=== PATIENT | male | born 1940 | race Caucasian/White ===

== ENCOUNTER → 2019-05-19 14:03 | Outpatient (CLI) | payer MEDICARE, SELFPAY ==
--- NOTE | 2019-05-19 14:14 | CT_ITS ---
STUDY: CT CHEST WITHOUT CONTRAST- LOW DOSE SCREENING PROTOCOL REASON FOR EXAM: Male, 78 years old. Current smoker. 110 pack per year history. No current symptoms of lung cancer or pulmonary infection. Shared decision-making with referring PCP documented in patient's record. RADIATION DOSAGE (If Supplied By Facility): CTDIvol = ( 2.55 ) mGy, DLP = ( 77.54 ) mGycm TECHNIQUE: Low dose screening CT examination performed from the base of the neck to the upper abdomen. Sagittal and coronal reformatted images performed. Sagittal and coronal MIP images provided. The measurements provided are average, rounded measurements per ACR guidelines. COMPARISON: None. FINDINGS: Mild emphysematous changes. No noncalcified nodule or mass. There is no demonstrated pleural abnormality. Normal heart and pericardium. There are calcifications of the coronary arteries. Normal mediastinum. Normal hilar regions. Normal unenhanced pulmonary arteries. There is atherosclerotic calcification of the aortic arch with tortuosity and elongation of the aortic arch and descending thoracic aorta. Normal osseous structures. There is no demonstrated abnormality of the visualized upper abdomen. CT/Low Dose CT Lung Screening IMPRESSION: 1. No significant indeterminate incidental findings requiring additional imaging. 2. Incidental findings include mild emphysema. ASSESSMENT CATEGORY: LungRADS 1 - Negative. Continue annual screening with LDCT in 12 months, per established ACR guidelines. Electronically Signed: Julius Romero MD at 17:16 EDT Tel , Service support ,
== END ==
DX: J44.9 Chronic obstructive pulmonary disease, unspecified (principal); F17.210 Nicotine dependence, cigarettes, uncomplicated
CPT/HCPCS: G0297

== ENCOUNTER → 2019-12-06 14:32 | Outpatient (CLI) | payer MEDICARE, SELFPAY ==
--- NOTE | 2019-12-06 14:39 | CT_ITS ---
STUDY: LOW DOSE CT LUNG CANCER SCREENING REASON FOR EXAM: Male, 79 years old. TOBACCO ABUSE -- +SMOKER X60 YEARS 2PPD UNFILTERED -- SURG-GB,ANGIOPLASTY -- HTN RADIATION DOSAGE (If Supplied By Facility): CTDIvol = ( 3.02 ) mGy, DLP = ( 111.36 ) mGycm TECHNIQUE: No contrast was administered. Low dose technique was utilized (average mAS-38 and kVp 120). 1.25 mm axial source images with a slice interval of 1.25-mm were reconstructed in lung windows. 2.5 mm axial source images with a slice interval of 2.5-mm were reconstructed in lung windows. 5.0 mm axial source images with a slice interval of 5.0-mm were reconstructed in soft tissue windows. Nodule measured using lung windows on PACS and/or independent workstation with automated measurement of minimum and maximum diameter. Nodule measurement reported as average diameter rounded to the nearest whole number. Growth is defined as an increase ins size of greater than 1.5 mm. COMPARISON: 05/19/2019 and 11/19/2014 CT chest. Findings: Heart and great vessels: Heart size normal. No aneurysm of the thoracic aorta. Dense calcific atherosclerosis of the coronary arteries. Lungs, pleura: No pneumonia, edema, or acute abnormality in the lungs. No pleural effusion. No pneumothorax. 2 mm nodule superior segment right lower lobe series 2 image 99 unchanged compared to 2015. Unchanged compared to 2015 slightly nodular scarring more posteriorly in the superior segment of the right lower lobe series 2 image 113. 5 mm nodule superior segment lower lobe left lung unchanged compared to 2015 series 2 image 88. Scattered 2 mm subpleural nodules lateral aspect left lower lobe unchanged compared to 2015. Chronic slightly nodular scarring in the lingula and right middle lobe unchanged. Mild chronic bronchial wall thickening. Mild emphysema. Mediastinum: No adenopathy or mass or hematoma. Incidental calcified left hilar lymph nodes again demonstrated. Osseous:No fracture or acute osseous abnormality. Chest wall: No concerning findings. Upper abdomen: No acute findings. Status post cholecystectomy. CT/Low Dose CT Lung Screening IMPRESSION: No concerning interval change. Lung RADS category 2. Continued annual screening suggested. Dense atherosclerosis of the coronary arteries. Mild chronic bronchial wall thickening and mild emphysema. IMPORTANT NOTES FOR USE: ACR Lung-RADS Version 1.0 Assessment Categories Release Date: February 19, 2014 Category: Coded 0-4 bases on nodule(s) with highest degree of suspicion. Negative screen is defined as categories 1 and 2; a positive screen is defined as categories 3 and 4. Category 3 and 4A nodules that are unchanged on interval CT should be coded as category 2, and individuals returned to screening in 12 months. Category 4X: Category 3 or 4 nodules with additional imaging findings that increase the suspicion of lung cancer, such as spiculation, GGN that doubles in size in 1 year, enlarged lymph notes, etc. Category Modifiers: S (significant finding unrelated to lung cancer) and C (prior history of treated lung cancer) may be added to the 0-4 Lung-RADS Electronically Signed: French Rosales, at 23:32 EST Tel , Service support ,
== END ==
DX: Z87.891 Personal history of nicotine dependence (principal); Z12.2 Encounter for screening for malignant neoplasm of respiratory organs
CPT/HCPCS: G0297

== ENCOUNTER → 2020-07-31 | Outpatient (CLI) | payer MEDICARE, SELFPAY ==
[2020-07-18 10:09] VITALS: BMI 26.9
--- NOTE | 2020-07-31 13:38 | ART_ITS ---
Reason For Study: Absent DP and PRINTER TECHNICIAN pulses bilaterally Procedure A bilateral lower extremity continuous wave Doppler with analog waveform analysis and ankle brachial indexes. Left Segmental Pressures Left brachial= 128mmHg. Left posterior tibial artery = 131mmHg. Left dorsalis pedis artery = 130mmHg. Left digit = 110 mmHg. The left dorsalis pedis waveforms are triphasic. The left posterior tibial artery waveforms are triphasic. Right Segmental Pressures Right brachial= 134mmHg. Right posterior tibial artery = 74mmHg. Right dorsalis pedis artery = 77mmHg. Right digit = 49 mmHg. The right dorsalis pedis waveforms are monophasic. The right posterior tibial artery waveforms are monophasic. Indices The right ankle brachial index by the dorsalis pedis is 0.57. The right ankle brachial index by the posterior tibial artery is 0.55. The right digital-brachial index is 0.37. The left ankle brachial index by the dorsalis pedis is 0.97. The left ankle brachial index by the posterior tibial artery is 0.98. The left digital-brachial index is 0.82. 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 Doppler waveforms for the posterior tibial and dorsalis pedis are only monophasic suggesting a possible more severe level of disease Abnormal right digital brachial indices Minimal left lower extremity arterial occlusive disease based upon ankle-brachial indices and triphasic Doppler waveforms Normal left digital brachial indices Ordering Physician: Milady Adan Performed By: Shona De Leon RVT and Student
== END | disposition home or self-care (01) ==
LOC: CVS 13:38
PROVIDERS: Referring Provider Nurse Practitioner Family; Visit Provider Nurse Practitioner Family
DX: R09.89 Other specified symptoms and signs involving the circulatory and respiratory systems (principal)
CPT/HCPCS: 93922

== ENCOUNTER 2020-08-21 14:30 | Outpatient (RCR) | payer MEDICARE, SELFPAY ==
[2020-07-18 10:09] VITALS: BMI 26.9
--- NOTE | 2020-07-25 16:13 | HP.PTEVAL_ITS ---
Patient's Visit Information STEPHAN BENAVIDEZ is a 79 year old M referred to Physical Therapy by LORA Avalos with a diagnosis of Generalized Weakness. Date of Evaluation: 07/25/20 Physical Therapist: Viviana Flores DPT - Visit Plan Frequency: 2x /Week Duration: 4 Weeks Plan: Focus on LE and core strength/stabilization - Subjective MD ordered him to come here- he thinks he has the strength of a 6 year old girl- this is not new- he has a blood test 2x a year- when he got results nothing jumped out at him. He has just started with a neurologist. He sent him here for therapy and tests. He has weakness and balance issues. He has arthritis pain- all over pain. Pain is there all the time. Dull and achy pains. The pain does not change a whole lot. 02/01. Notices the weakness when he is lifting something- generalized weakness-balance is worse when he gets up- recent falls coming up concrete stairs a couple of months ago. He is not very active at this point. He keeps up with his schedule and fixes himself some meals. He is fully I with all of his ADL's and lives alone. Drives himself. Does not use a cane or walker. Lives in an apt with no stairs. No NT in the LE or UE. PMHx/Meds: see list - Objective Posture: FH, RS, increased kyphosis- can correct with verbal and tactile cues but does not maintain. Gait: short stride length and decreased claribel. Stairs: asc/desc 8 recip with 2 HR- poor control with descent- asc uses UE A for propulstion. HR/TR: able with UE A. Balance: see FGA below. ROM: WFL in LE and core. Strength:Core:fair minus, Scap: fair minus. Shoulder: 4/5 t hroughout Elbow: 4+/5, Wrist/Alodize Machine Helper: WNL, Hip: 4/5 throughout, Knee: 5/5, Ankle: 5/5. Sit to installation helper 30 sec: 11 with no UE A. Flex: HS: severe Gastroc: severe - Balance Scores Functional Gait Assessment Score: 20 % Disability: 33.3400 - Goals Goal 1:: Patient will be I with HEP and progression Goal Time Frame: 4-6 Weeks Goal 2:: Patient will asc/desc 8 stairs recip with 1 HR and good control Goal Time Frame: 4-6 Weeks Goal 3:: Patient will demo 4+/5 strength throughout LE Goal Time Frame: 4-6 Weeks Goal 4:: Patient will maintain proper posture t/o tx session to demo increased core s/s Goal Time Frame: 4-6 Weeks - Rehabilitation Potential Physical Therapy Diagnosis: Patient presents with hypomobility- he has decreased strength and muscular endurance leading to poor balance, gait and decreased ability to perform ADL's. Rehabilitation Potential: Fair - Anticipated Interventions Patient/Client Instruction: Educate patient on: Benefits of Fitness Program Therapeutic Exercise to Include: Strength training, Endurance training, Body mechanics, Postural training, Flexibilty training, Gait and locomotor training, Neuromotor development, Passive ROM, Active ROM, Dynamic Lumbar Stabilization, Scapular Strength/Stabilization For the Purpose of:: To improve muscle performance and motor function TENS: Yes Cryotherapy (ice pack, ice massage): Yes Thermo therapy (hot pack): Yes Thank you for the opportunity to evaluate your patient. For Medicare and Medicare HMO plans, please review the plan of care and approve it. It will need to be FAXED BACK to us at [phone] for Medicare purposes. For Medicare only, by signing this I certify the plan of care. Please let me know if there are questions or concerns regarding this plan of care. Physician Signature: Date:
--- NOTE | 2020-08-21 15:04 | HP.PTDCSUM ---
It has been my pleasure to treat STEPHAN BENAVIDEZ referred by LORA Avalos, with the diagnosis of Generalized Weakness for a total of 8 visit(s). Discharge Date: Please see the following information for a summary of their discharge status. Subjective: Patient reports that he does not feel that getting stronger will happen in PT. He is frustrated and dissapointed that the doctors have not gotten his blood work figured out even though its normal. He feels that there is osmething medically wrong and he needs more than PT. He reports that he is not active at home and sits most of the day. Every other day he walks to the mailbox. % Improvement: 25 Objective/Function: Posture: FH, RS, increased kyphosis- can correct with verbal and tactile cues but does not maintain. Gait: short stride length and decreased claribel. Stairs: asc/desc 8 recip with 1 HR HR/TR: able with UE A. ROM: WFL in LE and core. Strength:Core:fair minus, Scap: fair minus. Shoulder: 4/5 throughout Elbow: 4+/5, Wrist/Applications Engineer Manufacturing: WNL, Hip: 4/5 throughout, Knee: 5/5, Ankle: 5/5. Sit to residential door unit installer 30 sec: 12 with no UE A. Flex: HS: severe Gastroc: severe Goal 1:: Patient will be I with HEP and progression Goal Progress: Progressing Goal 2:: Patient will asc/desc 8 stairs recip with 1 HR and good control Goal Progress: Progressing Goal 3:: Patient will demo 4+/5 strength throughout LE Goal Progress: Progressing Goal 4:: Patient will maintain proper posture t/o tx session to demo increased core s/s Goal Progress: Progressing Plan: Discharge to I home exercise program and encouraged him to follow up with his MD as he feels necessary. If there are questions or concerns regarding this patient's physical therapy, please feel free to call me at [phone]. Thank you for the referral of this patient. Sincerely, Viviana Flores DPT
== END 2020-08-21 19:00 | disposition home or self-care (01) ==
LOC: PT 14:30
PROVIDERS: Referring Provider Nurse Practitioner Family; Visit Provider Nurse Practitioner Family
DX: R53.1 Weakness (principal); G62.9 Polyneuropathy, unspecified
CPT/HCPCS: 97110; 97162; 97164

== ENCOUNTER → 2020-10-14 13:08 | Outpatient (CLI) | payer MEDICARE, SELFPAY ==
[2020-07-18 10:09] VITALS: BMI 26.9
--- NOTE | 2020-10-14 14:46 | NEURO_ITS ---
NCS and/or EMG Patient Report Ordering Doctor: Andrey Mendosa DATE OF SERVICE: 10/14/20 Indication: Generalized weakness and gait imbalance over the last year. He walks unassisted with no falls. No associated pain or sensory disturbance. Of note, the patient reports that he is taking an anticoagulant, but he cannot recall the name. This medication is not in our system (he reports that it is prescribed by his master chef in [place], [place]). Findings: Nerve conduction studies were performed in the right and left lower extremity. The right peroneal motor study recording the extensor digitorum brevis showed a normal amplitude, normal distal latency and normal conduction velocity. No conduction block or focal slowing was present across the fibular neck. The right tibial motor study recording the abductor hallucis brevis showed a normal amplitude, normal distal latency and normal conduction velocity. Right sural sensory response was absent. Right superficial peroneal sensory response showed a normal amplitude and borderline conduction velocity. The left peroneal motor study recording the extensor digitorum brevis showed a normal amplitude, normal distal latency and normal conduction velocity. No conduction block or focal slowing was present across the fibular neck. The left tibial motor study recording the abductor hallucis brevis showed a normal amplitude, normal distal latency and normal conduction velocity. Left sural sensory response showed a normal amplitude and borderline conduction velocity. Left superficial peroneal sensory response showed a normal amplitude and borderline conduction velocity. Limited needle EMG of the right lower extremity muscles was performed. The iliacus and lumbar paraspinal muscles could not be sampled due to the patient's current treatment with anticoagulant medication. No denervation was present in any muscle. All motor unit morphology, activation and recruitment patterns were normal. Impression: This is an essentially normal, but limited study. There is no definitive electrophysiologic evidence of peripheral polyneuropathy in either lower extremity. In addition, limited needle EMG (see above) failed to reveal evidence of a myopathy in the right lower extremity. This absent right sural response is likely technical as it does not correlate with any clinical symptomatology. The isolated motor unit changes in the right vastus lateralis are of unclear significance. They are suggestive of a remote neurogenic injury- though this cannot be localized further with the current study. A more complete examination off anticoagulation could be considered. Sumanth Atkinson D.O.
== END ==
PROVIDERS: Referring Provider Psychiatry & Neurology Neurology; Visit Provider Psychiatry & Neurology Neurology
DX: G62.9 Polyneuropathy, unspecified (principal); G72.9 Myopathy, unspecified
CPT/HCPCS: 95886; 95910

== ENCOUNTER → 2020-11-22 14:34 | Outpatient (CLI) | payer MEDICARE, SELFPAY ==
[2020-11-22 13:54] VITALS: BMI 25.3
[2020-11-22 15:04] LABS: Hematocrit 43.5 % (40-54); Hemoglobin 14.5 g/dL (13.0-16.5); Mean Corp Hgb Conc 33.3 g/dL (32-36); Mean Corpuscular Hgb 29.1 pg (27.0-32.0); Mean Corpuscular Volume 87.2 fL (80-94); Mean Platelet Vol. 11.1 fl (6.2-12.0); Platelet Count 181 K/mm3 (150-450); RBC Distribution Width CV 13.8 % (11.6-14.6); RBC Distribution Width SD 43.7 fl (35.1-43.9); Red Blood Count 4.99 M/mm3 (4.6-6.2); White Blood Count 6.2 K/mm3 (4.4-11.0)
[2020-11-22 15:31] LABS: ALB/GLOB Ratio 1.2 RATIO (0.9-2.4); AST(SGOT) 10 U/L (15-37); Alanine Aminotransfer ALT/SGPT 17 U/L (16-61); Albumin, Serum 3.5 g/dL (3.2-5.0); Alkaline Phosphatase 81 U/L (45-117); Anion Gap 4 (5-15); BUN 12 mg/dL (7-18); BUN/Creat Ratio 12.4 RATIO (10-20); Calcium,Total 8.5 mg/dL (8.5-10.1); Chloride 106 mmol/L (98-107); Creatinine, Serum 0.96 mg/dL (0.70-1.30); EST Glomerular Filtration Rate 80 mL/min (>60); Est Glom Filt Rate - Afr Amer 97 mL/min (>60); Globulin 2.8 g/dL (2.2-4.2); Glucose 133 mg/dL (74-106); Protein, Total 6.3 g/dL (6.4-8.2); Sodium Level 139 mmol/L (136-145)
[2020-11-22 15:34] LABS: CPK Total, Creatine Kinase 40 U/L (39-308)
[2020-11-25 02:04] LABS: ANTINUCLEAR ANTIBODIES DIRECT Negative (Negative)
== END ==
PROVIDERS: Psychiatry & Neurology Neurology; Referring Provider Surgery; Visit Provider Surgery
DX: Z01.812 Encounter for preprocedural laboratory examination (principal); G57.90 Unspecified mononeuropathy of unspecified lower limb; G72.9 Myopathy, unspecified; R53.1 Weakness
CPT/HCPCS: 36415; 80053; 82085; 82550; 83874; 83883; 84425; 85027; 86038; 86225; 86235

== ENCOUNTER → 2020-11-28 14:34 | Outpatient (CLI) | payer MEDICARE, SELFPAY ==
[2020-11-22 13:54] VITALS: BMI 25.3
--- NOTE | 2020-11-28 14:35 | CT_ITS ---
HISTORY: Bilateral leg weakness. History of diabetes. Prior cholecystectomy. Technique: Following the uneventful administration of 100 mL of Isovue-370 contiguous helical images were obtained from the heart to the phalanges. 2-D and 3-D reformats. The 3-D reformats are current linear reformats through the vessels. The patient has a low-dose lung screening CT most recently from December 06, 2019. Patient had an aortic ultrasound from November 19, 2014. Findings: 3165 images. CTA abdomen and pelvis: Lung bases are clear. Degenerative disc disease and facet arthropathy. Both femoral heads are well-seated within their respective acetabula. Facet arthropathy is greatest within the lower lumbar spine. The heart is not enlarged. Tortuosity of the abdominal aorta with atherosclerosis. The celiac trunk, the SMA, solitary bilateral renal arteries, the isolates, both common iliac arteries are patent. Atherosclerosis continues into both common iliac arteries. 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 There is ulceration into the thrombus. Severe atherosclerotic plaque is also present within the right common iliac artery. Both left and right common iliac arteries remain patent and provides flow to the internal iliac arteries. There is a high-grade stenosis of 80% to the origin of the right internal iliac artery, series 2 image 71. The right external iliac artery is occluded at its origin. The left external iliac artery is patent to the left common femoral artery with atherosclerosis. Left internal iliac artery is severely disease. The right external iliac artery remains occluded, however, the right common femoral artery is reconstituted, from what appears to be right internal iliac artery collaterals around the hip. The gallbladder has been resected. The liver is fattily infiltrated. The spleen contains benign calcified granulomas. The pancreas and adrenal glands are normal. The kidneys are mildly atrophic without hydronephrosis or nephrolithiasis. Bowel gas pattern is normal. Urinary bladder is mostly decompressed. The prostate gland is slightly enlarged. The appendix is normal. Series [address] angiogram of the right lower extremity: The right common femoral artery provides flow to the right superficial femoral and profunda femoris artery. The right superficial femoral artery is diseased with atherosclerotic plaque throughout. This disease is most severe within the distal aspect of the vessel. It remains patent to the popliteal artery. The right popliteal artery remains patent to the anterior tibial artery. Anterior tibial artery flow on the right is minimal. The tibioperoneal trunk is widely patent. The peroneal and posterior tibial arteries are patent but small. The anterior tibial artery quickly occludes. The peroneal artery completely occludes. The posterior tibial artery quickly occludes. Delayed imaging was obtained through the talus and into the feet. The right anterior tibial artery does provide flow throughout bunnies delayed images without occlusion. There is a stenosis at the distal right anterior tibial artery, but it does remain patent and provides flow to the right dorsalis pedis. The right peroneal artery does not occlude but does continue flow all the way to the ankle. The right posterior tibial artery does not occlude it remains patent all way to the plantar surface of the right foot. Left lower extremity CT angiogram. The left common femoral artery provides flow to the left superficial femoral and profunda femoris. Calcific plaque is also present in the left superficial femoral artery which remains patent left popliteal artery. Left popliteal artery is small. There is an early origin to the left anterior tibial artery at the level of the inferior margin of the patella above the knee joint. The tibioperoneal trunk remains patent. The tibioperoneal trunk provides flow to the left peroneal and posterior tibial arteries. On the initial arterial phase imaging the left calf vessels all occluded. On the delayed imaging, however, the left calf arteries all remain patent to the ankle. The left posterior tibial artery in fact has less flow than the right. The left anterior tibial artery into the left dorsalis pedis has less flow than the right. The peroneal artery maintains flow to the ankle. No fractures are perceived. CT/CTA Abd w/Runoff W/WO Contrast IMPRESSION: Occlusion of the right common iliac artery. Reconstitution of the right common iliac artery likely due to deep pelvic collaterals and collaterals. 80% stenosis at the origin of the right internal iliac artery. Atherosclerosis throughout the right superficial femoral artery but with flow to the ankle and foot. Atherosclerosis within the left iliac arteries and left superficial femoral artery and left popliteal artery. There is flow to the ankle from the left calf vessels, however, on these delayed images there is actually greater flow on the right side than the left side with the right side having occluded right external iliac artery.. Individualized dose optimization techniques were used for this CT. at 0606 Reported and signed by: Jani Amezcua MD Electronically Signed: Jani Amezcua MD at 6:05 EST Tel , Service support ,
== END ==
PROVIDERS: Referring Provider Surgery; Visit Provider Surgery
DX: M62.81 Muscle weakness (generalized) (principal)
CPT/HCPCS: 75635; Q9967